=== PATIENT | male | born 1955 | race African-American/Black ===

== ENCOUNTER → 2016-08-23 | Outpatient (REF) | payer OTHER ==
[~2016-08-23] MED LIST: ALLO100T PO; AMLO5TAB2 PO; [UNRECOGNIZED DRUG - OTHER] PO
[2016-08-23 21:23] LABS: BASO % 0.5 % (0.0-1.0); EOS # 0.1 K/mm3 (0.0-0.50); EOS % 1.8 % (0.0-3.0); LARGE UNSTAINED CELL # 0.1 K/mm3 (0.0-0.4); LARGE UNSTAINED CELL % 1.9 % (0.0-4.0); LYMPH # 1.8 K/mm3 (1.5-4.5); LYMPH % 40.2 % (24.0-44.0); MEAN CORPUSCULAR HEMOGLOBIN 27.1 pg (27.0-33.0); MEAN CORPUSCULAR HGB CONC 32.9 g/dl (32.0-36.5); MEAN CORPUSCULAR VOLUME 82.1 fl (80.0-96.0); MONO # 0.3 K/mm3 (0.0-0.8); MONO % 6.5 % (0.0-5.0); NEUTROPHILS # 2.2 K/mm3 (1.8-7.7); NEUTROPHILS % 49.1 % (36.0-66.0); PLATELET COUNT, AUTOMATED 344 k/mm3 (150-450); RED CELL DISTRIBUTION WIDTH 14.8 % (11.5-14.5); WHITE BLOOD COUNT 4.4 K/mm3 (4.0-10.0)
[2016-08-23 21:28] LABS: ALBUMIN/GLOBULIN RATIO 1.11 (1.00-1.93); BILIRUBIN,TOTAL 0.3 MG/DL (0.2-1.0); CALCIUM LEVEL 9.4 MG/DL (8.5-10.1); CREATININE FOR GFR 2.19 MG/DL (0.70-1.30); GLOMERULAR FILTRATION RATE 40.1 (>56); POTASSIUM SERUM 4.6 MEQ/L (3.5-5.1); TOTAL PROTEIN 7.6 GM/DL (6.4-8.2)
== END ==
LOC: M LAB REF 17:53
PROVIDERS: ATTEND Family Medicine
DX: B58.01 Toxoplasma chorioretinitis (principal); L40.9 Psoriasis, unspecified; H34.9 Unspecified retinal vascular occlusion

== ENCOUNTER → 2016-12-24 | Outpatient (CLI) | payer OTHER ==
[~2016-12-24] MED LIST changes: +ISOVUE-370 76% 100ML VIAL (Q9967) As Ordered ONE
--- NOTE | 2016-12-24 10:23 | REP ---
CT NECK WITH CONTRAST: HISTORY: Neck mass. CONTRAST: Isovue 370, 75 mL. The examination is limited secondary to motion. The nasopharynx, larynx and subglottic trachea are normal in appearance. The uzair- and hypopharynx are not well seen. There is no definite abnormality in the uzair- or hypopharynx. The salivary and thyroid gland are normal in size and density. A slightly enlarged lymph node 1.1 cm in width is present in the right internal jugular chain at the level of the oropharynx. Small lymph nodes less than 1 cm in size are present in the left internal chain, posterior triangles, submandibular and submental areas. The lung apices are clear. The visualized sinuses are clear. IMPRESSION: There is a single, slightly enlarged 1.1 cm lymph node in the right internal jugular chain at the level of the oropharynx. Signed by César Daniel MD 12/24/2016 11:48 A
== END ==
LOC: M RAD 08:46
PROVIDERS: ATTEND Otolaryngology
DX: R59.0 Localized enlarged lymph nodes (principal)
CPT/HCPCS: 70491; Q9967

== ENCOUNTER → 2022-10-07 | Outpatient (CLI) | payer OTHER ==
[~2022-10-07] MED LIST changes: +ALLO300T2; +AMLO1TAB24 PO; -AMLO5TAB2 PO; +BENA-8; -ISOVUE-370 76% 100ML VIAL (Q9967) As Ordered ONE
[2022-10-07 12:09] LABS: BASO % 0.8 % (0.0-1.0); EOS # 0.1 10^3/uL (0.0-0.5); EOS % 2.6 % (0.0-3.0); HEMOGLOBIN 12.5 g/dl (13.5-17.5); LYMPH # 1.6 10^3/uL (1.5-5.0); LYMPH % 31.9 % (24.0-44.0); MEAN CORPUSCULAR HEMOGLOBIN 26.8 pg (27.0-33.0); MEAN CORPUSCULAR HGB CONC 32.1 g/dl (32.0-36.5); MEAN CORPUSCULAR VOLUME 83.5 fl (80.0-96.0); MONO # 0.4 10^3/uL (0.0-0.8); MONO % 7.7 % (2.0-8.0); NEUTROPHILS # 2.9 10^3/uL (1.5-8.5); NEUTROPHILS % 56.8 % (36.0-66.0); PLATELET COUNT, AUTOMATED 308 10^3/uL (150-450); RED BLOOD COUNT 4.67 10^6/uL (4.30-6.10)
[2022-10-07 12:35] LABS: ALBUMIN 3.6 G/DL (3.2-5.2); ALKALINE PHOSPHATASE 60 U/L (46-116); ALT/SGPT 17 U/L (7.0-40); AST/SGOT 16 U/L (<34); BILIRUBIN,TOTAL 0.4 MG/DL (0.3-1.2); BLOOD UREA NITROGEN 16 MG/DL (9-23); CALCIUM LEVEL 9.2 MG/DL (8.3-10.6); CARBON DIOXIDE LEVEL 27 MMOL/L (20-31); CHLORIDE LEVEL 105 MMOL/L (98-107); CREATININE FOR GFR 1.46 MG/DL (0.70-1.30); GLOMERULAR FILTRATION RATE > 60.0 (>49); GLUCOSE, FASTING 89 MG/DL (74-106); POTASSIUM SERUM 4.3 MMOL/L (3.5-5.1); SODIUM LEVEL 139 MMOL/L (136-145); TOTAL PROTEIN 6.9 G/DL (5.7-8.2)
[2022-10-07 13:07] LABS: HIV 1&2 SCREEN NEGATIVE (NEGATIVE)
[2022-10-07 13:15] LABS: HEPATITIS C VIRUS ABY INDEX 0.13 INDEX (<0.8)
[2022-10-07 13:16] LABS: HEPATITIS B CORE ANTIBODY IGM NEGATIVE (NEGATIVE)
== END ==
LOC: M LAB 11:03
PROVIDERS: ATTEND Nurse Practitioner Family
DX: L40.9 Psoriasis, unspecified (principal)

== ENCOUNTER → 2022-10-07 | Outpatient (REF) | payer OTHER | LOC: M SFHCDERM 10:52 | PROVIDERS: ATTEND Nurse Practitioner Family | DX: L40.9 Psoriasis, unspecified (principal) ==

== ENCOUNTER 2023-11-08 06:14 | Day surgery (SDC) | payer MEDICARE, OTHER ==
[~2023-11-08] VITALS: Ht 172.7 cm; Wt 76.1 kg
[~2023-11-08 06:14] MED LIST changes: -ALLO300T2; +ALLO300T2 PO; -BENA-8; +BENA-8 PO; +CALC1CAP31 PO
[2023-11-08] MEDS: LR 1,000 ML IV SCH (06:59)
[2023-11-08] MEDS ORDERED: ONDANSETRON 4MG 2ML VIAL As Ordered ONE (07:03)
[2023-11-08] MEDS ORDERED: ACETAMINOPHEN 1000MG 100ML IV BAG As Ordered ONE (07:03)
[2023-11-08] MEDS ORDERED: propofoL 200 MG/20 ML VIAL As Ordered ONE (07:03)
[2023-11-08] MEDS ORDERED: SUGAMMADEX SODIUM 500 MG/5 ML VIAL (BRIDION) As Ordered ONE (07:03)
[2023-11-08] MEDS ORDERED: LIDOCAINE 2% 100MG/5ML SDV (FOR ANES.) As Ordered ONE (07:03)
[2023-11-08] MEDS ORDERED: ROCURONIUM BROMIDE 50MG/5ML VIAL As Ordered ONE (07:03)
[2023-11-08] MEDS ORDERED: MIDAZOLAM INJ 2MG/2ML VIAL As Ordered ONE (07:04)
[2023-11-08] MEDS ORDERED: fentaNYL 100 MCG/2 ML INJECTION As Ordered ONE (07:04)
[2023-11-08] MEDS: ceFAZolin SOD 2 GM in IV 1 EA IV ONE (07:30)
[2023-11-08] MEDS ORDERED: dexmedeTOMIDine (4MCG/ML)200MCG/50ML BTL (PRECEDEX) As Ordered ONE (08:39)
[2023-11-08] MEDS ORDERED: LR 1,000 ML IV SCH (09:40)
[2023-11-08] MEDS ORDERED: oxyCODONE 5MG TAB PO PRN (09:40)
[2023-11-08] MEDS ORDERED: ONDANSETRON 4MG 2ML VIAL IV PRN (09:40)
[2023-11-08] MEDS ORDERED: fentaNYL 100 MCG/2 ML INJECTION IV PRN (09:40)
[2023-11-08] MEDS: HYDROMORPHONE HCL 0.5 MG/ 0.5 ML SYRINGE IV PRN (09:54)
[2023-11-08] MEDS ORDERED: traMADol 50 MG TAB PO PRN (09:55)
[2023-11-08] MEDS ORDERED: NS 1,000 ML IV SCH (10:00)
[2023-11-08 10:26] VITALS: BP 154/71
[2023-11-08 11:15] VITALS: TEMP 97.4; O2SAT 98
== END 2023-11-08 11:41 | disposition home or self-care (01) ==
LOC: M SDC 06:14
PROVIDERS: ATTEND Surgery
DX: K40.90 Unilateral inguinal hernia, without obstruction or gangrene, not specified as recurrent (principal); I10 Essential (primary) hypertension; M10.9 Gout, unspecified; Z87.891 Personal history of nicotine dependence; Z85.46 Personal history of malignant neoplasm of prostate; Z79.899 Other long term (current) drug therapy
CPT/HCPCS: 49650; 93005; C1781; J0131; J0665; J0690; J1100; J1171; J2250; J2405; J3010; S2900

== ENCOUNTER → 2024-04-13 | Outpatient (REF) | payer MEDICARE, OTHER ==
[2024-04-13 17:33] LABS: PROTHROMBIN TIME 13.5 SECONDS (12.5-14.5)
[2024-04-13 18:02] LABS: COMPLEMENT C4 69.1 MG/DL (12-36)
[2024-04-17 21:17] LABS: PROTEIN CREATININE RATIO 2611 mg/g creat (25-148); T PROTEIN CREATININE RATIO 2.611 (0.025-0.148); UPEP CREATININE 90 mg/dL (20-320)
[2024-04-18 10:02] LABS: UPEP ALBUMIN 86 %; UPEP TOTAL PROTEIN 235 mg/dL (5-25); URINE ALPHA 1 GLOBULIN 3 %; URINE ALPHA 2 GLOBULIN 3 %; URINE BETA GLOBULIN 5 %; URINE GAMMA GLOBULIN 4 %
[2024-04-18 12:02] LABS: ANTI-GLOMERULAR BASEMENT MEMB < 1.0 AI (<1.0); Antimyeloperxidase(MPO) Abs < 1.0 AI (<1.0); Antiproteinase 3 (PR-3) Abs < 1.0 AI (<1.0)
[2024-04-19 18:33] LABS: ANCA SCREEN REFLEX Negative (Negative)
[2024-04-20 00:33] LABS: ANTI DS-DNA AB NEGATIVE (NEGATIVE)
== END ==
LOC: M LAB REF 17:08
PROVIDERS: ATTEND Internal Medicine Nephrology
DX: R80.9 Proteinuria, unspecified (principal); D63.1 Anemia in chronic kidney disease; R31.9 Hematuria, unspecified